=== PATIENT | female | born 1980 | race Caucasian/White ===

== ENCOUNTER 2017-05-22 05:51 | Outpatient (CLI) | payer OTHER ==
[~2017-05-22] VITALS: Ht 156.2 cm; Wt 109.8 kg
[~2017-05-22 05:51] MED LIST: ACHYD1T PO; IBP800T PO; LORA-794 PO; PREN1TAB39 PO
[2017-05-22] MEDS ORDERED: NORG1TAB7 PO (10:39)
[2017-05-22] MEDS ORDERED: LORA0.5T PO (10:39)
== END 2017-05-22 10:48 ==
LOC: PREOP 05:51
PROVIDERS: ATTEND Surgery
DX: Z01.818 Encounter for other preprocedural examination (principal); L72.9 Follicular cyst of the skin and subcutaneous tissue, unspecified

== ENCOUNTER 2017-05-24 10:01 | Day surgery (SDC) | payer OTHER ==
[~2017-05-24] VITALS: Ht 156.2 cm; Wt 109.8 kg
[~2017-05-24 10:01] MED LIST changes: +LORA0.5T PO; +NORG1TAB7 PO
--- NOTE | 2017-05-24 10:23 | Progress Note-Pre Operative ---
Pre-Operative Progress Note H&P Reviewed The H&P was reviewed, patient examined and no changes noted. Date Seen by Provider: May 22, 2017 Time Seen by Provider: 15:35 Date H&P Reviewed: May 24, 2017 Time H&P Reviewed: 10:23 Pre-Operative Diagnosis: Cyst of right leg AMRY GILL MD May 24, 2017 10:23 am
[2017-05-24] MEDS ORDERED: LACTATED RINGERS 1,000 ML IV PRN (10:49)
[2017-05-24] MEDS ORDERED: ceFAZolin 2 GM/NS 50 ML IV ONE (11:00)
[2017-05-24] MEDS ORDERED: proPOfol 200 MG/20 ML (DIPRIVAN) VIAL IV ONE (11:14)
[2017-05-24] MEDS ORDERED: LIDOCAINE PF 2% 5 ML (XYLOCAINE) VIAL ONE (11:14)
[2017-05-24] MEDS ORDERED: MIDAZOLAM 2 MG/2 ML (VERSED) VIAL ONE (11:15)
[2017-05-24] MEDS ORDERED: BUP/EPI 0.5% 1:200,000 (MARCAINE) 10ML VIAL IJ ONE ×2 (11:15→11:39)
[2017-05-24] MEDS ORDERED: HYDR-3812 PO (11:20)
--- NOTE | 2017-05-24 11:21 | Discharge Inst-Simple/Standard ---
Discharge Inst-Standard Discharge Medications New, Converted or Re-Newed RX: RX on Chart Patient Instructions/Follow Up Plan of Care/Instructions/FU: dressings off in 48 hours. Follow-up with my nurse in 2 weeks for suture Activity as Tolerated: Yes Discharge Diet: No Restrictions MARY GILL MD May 24, 2017 11:21 am
[2017-05-24] MEDS ORDERED: HYDROcodone/APAP 5 MG/325 MG (LORTAB) TAB ONE (11:25)
--- NOTE | 2017-05-24 12:05 | Operative Report ---
Operative Report Date of Procedure/Surgery May 24, 2017 Surgeon (s) MARY GILL MD [employer] Customer Service Agent (s): N/A Post-Operative Diagnosis Same Procedure Performed Excision with primary closure Description of Procedure Anesthesia Type: MAC Estimated blood loss (mL): Minimal Specimen(s) collected/removed cystic lesion Description of the Procedure Indication for the procedure: This lady presented with a long-standing, 3 cm cystic lesion over the right leg. She was offered excision to establish a definitive diagnosis. Informed consent was obtained after reviewing the procedure in detail. Description of procedure: She was placed supine on the operating table and our anesthesiologist administered sedation, monitoring her vital signs. Ancef was administered intravenously as prophylaxis against wound infection. Right leg was prepared and draped in the usual sterile manner. Local anesthesia was achieved using 0.5 percent Marcaine with epinephrine. An elliptical incision about 4 cm long by 3 cm in width was made and the lesion excised down to the subcutaneous tissue. Hemostasis was achieved using cautery and the incision closed using interrupted 40 and 2-0 nylon sutures. A nonadherent dressing was then applied. The specimen was oriented with silk sutures before being sent for histology She tolerated the procedure well and was taken to the nursing area in a stable condition. Findings of the Procedure See op report Allergies and Home Medications Allergies Coded Allergies: No Known Drug Allergies (Unverified , 09/05/11) Home Medications Hydrocodone/Acetaminophen 1 Each Tablet, 1-2 TAB PO 4-6HR PRN for PAIN, #20 Ref 0 Prescribed by: MARY GILL on 05/24/17 1120 Lorazepam 0.5 Mg Tablet, 0.5 MG PO BID PRN for ANXIETY, (Reported) Norgestimate-Ethinyl Estradiol 1 Each Tablet, 1 EACH PO DAILY, (Reported) MARY GILL MD May 24, 2017 12:05 pm
[2017-05-24 12:12] VITALS: BP 141/89
[2017-05-24] MEDS ORDERED: ONDANSETRON 4 MG/2 ML (SDV) Z0FRAN IVP PRN (12:15)
[2017-05-24] MEDS ORDERED: morphine INJ 10 MG/ML 1ML (SYR OR VIAL) IVP PRN (12:15)
[2017-05-24 12:35] VITALS: BP 148/97
[2017-05-24 13:05] VITALS: BP 128/90
[2017-05-24 13:31] VITALS: BP 128/91
== END 2017-05-24 13:31 | disposition home or self-care (01) ==
LOC: SDC 10:01
PROVIDERS: ATTEND Surgery
DX: D23.71 Other benign neoplasm of skin of right lower limb, including hip (principal); E05.00 Thyrotoxicosis with diffuse goiter without thyrotoxic crisis or storm; E66.01 Morbid (severe) obesity due to excess calories; Z68.42 Body mass index [BMI] 45.0-49.9, adult; Z87.891 Personal history of nicotine dependence; Z82.49 Family history of ischemic heart disease and other diseases of the circulatory system; Z79.899 Other long term (current) drug therapy
CPT/HCPCS: 84703; 87081

== ENCOUNTER → 2019-01-08 | Outpatient (CLI) | payer BC ==
[~2019-01-08] MED LIST changes: +ACHD5005 PO
[2019-01-08 11:57] LABS: ABSOLUTE RETIC # 65 10e9/L (24-90); BASOPHILS % (AUTO) 0 % (0-10); EOSINOPHILS # (AUTO) 0.1 10^3/uL (0.0-0.3); EOSINOPHILS % (AUTO) 0 % (0-10); HEMATOCRIT 44 % (35-52); HEMOGLOBIN 13.7 G/DL (11.5-16.0); LYMPHOCYTES # (AUTO) 6.5 X 10^3 (1.0-4.0); LYMPHOCYTES % (AUTO) 31 % (12-44); MEAN CORPUSCULAR HEMOGLOBIN 26 PG (25-34); MEAN CORPUSCULAR HGB CONC 31 G/DL (32-36); MEAN CORPUSCULAR VOLUME 84 FL (80-99); MEAN PLATELET VOLUME 11.5 FL (7.4-10.4); MONOCYTES # (AUTO) 1.1 X 10^3 (0.0-1.0); MONOCYTES % (AUTO) 5 % (0-12); NEUTROPHILS # (AUTO) 13.3 X 10^3 (1.8-7.8); NEUTROPHILS % (AUTO) 64 % (42-75); PLATELET COUNT 313 10^3/uL (130-400); RED CELL DISTRIBUTION WIDTH 14.2 % (10.0-14.5); RETICULOCYTE % 1.24 % (0.50-2.40)
[2019-01-08 12:16] LABS: ALANINE AMINOTRANSFERASE 18 U/L (0-55); ALKALINE PHOSPHATASE 64 U/L (40-136); BILIRUBIN,TOTAL 0.4 MG/DL (0.1-1.0); BUN/CREATININE RATIO 26; CALCIUM 9.2 MG/DL (8.5-10.1); CARBON DIOXIDE 25 MMOL/L (21-32); CHLORIDE 108 MMOL/L (98-107); CREATININE SERUM 0.73 MG/DL (0.60-1.30); GFR ESTIMATED > 60; GLUCOSE 74 MG/DL (70-105); POTASSIUM 4.1 MMOL/L (3.6-5.0); SODIUM 141 MMOL/L (135-145); TOTAL PROTEIN 6.8 GM/DL (6.4-8.2)
[2019-01-08 13:04] LABS: BAND NEUTROPHILS 0 %; BASOPHILS % (MANUAL) 0 %; EOSINOPHILS % (MANUAL) 0 %; LYMPHOCYTES % (MANUAL) 21 %; MONOCYTES % (MANUAL) 4 %; NEUTROPHILS % (MANUAL) 75 %; RBC MORPH NORMAL
== END ==
LOC: LAB 11:40
PROVIDERS: ATTEND Family Medicine
DX: D72.829 Elevated white blood cell count, unspecified (principal); D58.2 Other hemoglobinopathies
CPT/HCPCS: 36415; 80053; 85007; 85027; 85045

== ENCOUNTER 2019-03-20 10:56 | Outpatient (RCR) | payer BC ==
[~2019-03-20 10:56] MED LIST changes: -NORG1TAB7 PO; +NORG1TAB87 PO
[2019-03-20 11:16] LABS: BASOPHILS % (AUTO) 1 % (0-10); EOSINOPHILS % (AUTO) 0 % (0-10); HEMATOCRIT 45 % (35-52); HEMOGLOBIN 14.2 G/DL (11.5-16.0); LYMPHOCYTES # (AUTO) 2.4 X 10^3 (1.0-4.0); LYMPHOCYTES % (AUTO) 27 % (12-44); MEAN CORPUSCULAR HEMOGLOBIN 26 PG (25-34); MEAN CORPUSCULAR HGB CONC 31 G/DL (32-36); MEAN CORPUSCULAR VOLUME 83 FL (80-99); MONOCYTES # (AUTO) 0.4 X 10^3 (0.0-1.0); MONOCYTES % (AUTO) 5 % (0-12); NEUTROPHILS % (AUTO) 68 % (42-75); PLATELET COUNT 332 10^3/uL (130-400); RED CELL DISTRIBUTION WIDTH 13.8 % (10.0-14.5); WHITE BLOOD COUNT 8.8 10^3/uL (4.3-11.0)
== END 2019-05-20 | disposition home or self-care (01) ==
LOC: ONC 10:56
PROVIDERS: ATTEND Internal Medicine Hematology & Oncology
DX: D72.829 Elevated white blood cell count, unspecified (principal); D58.2 Other hemoglobinopathies
CPT/HCPCS: 36415; 85025; 99213; 99214

== ENCOUNTER → 2019-12-24 | Outpatient (CLI) | payer BC, OTHER ==
--- NOTE | 2019-12-25 10:14 | Diagnostic Imaging Report ---
EXAM: Digital mammogram bilateral screening COMPARISON: This is the patient's baseline study. There are no current complaints. FINDINGS: There are scattered fibroglandular densities in both breasts which could obscure a lesion. On the tomographic images, there is the suggestion of an area of architectural distortion in the midportion of the right breast on the craniocaudad view (slice 8/81). There is no corresponding abnormality seen on the MLO view and this finding may merely be secondary to superimposition. Even so, I would recommend that a compression view of this area be obtained in the CC projection as well as a true lateral view. Furthermore, tomographic images of the lower half of the right breast in the MLO projection should also be performed. If this density persists, ultrasound may be necessary, as well. The left breast is unremarkable. IMPRESSION: 1. Additional mammographic views of the right breast were recommended for further study. Ultrasound may also be necessary. ACR category 0. ACR BI-RADS Category 0: Incomplete. (Needs additional imaging evaluation). Result letter will be mailed to the patient. Note: At least 10% of breast cancer is not imaged by mammography. Dictated by: Dictated on workstation # [id number]
== END ==
LOC: RAD 11:05
PROVIDERS: ATTEND Obstetrics & Gynecology
DX: Z12.31 Encounter for screening mammogram for malignant neoplasm of breast (principal)
CPT/HCPCS: 77063; 77067

== ENCOUNTER → 2020-01-04 | Outpatient (CLI) | payer BC ==
--- NOTE | 2020-01-04 13:16 | Diagnostic Imaging Report ---
INDICATION: Architectural distortion right breast. Patient presents for additional views. COMPARISON: 12/24/2019. TECHNIQUE: Unilateral right 2D and 3D diagnostic mammography was performed including multiple spot compression CC, MLO, and ML views as well as a conventional 90 degree lateral view. FINDINGS: There is a persistent area of architectural distortion in the lower slightly inner right breast approximately 7 to 8 cm from the nipple. No suspicious calcifications are seen. IMPRESSION: Persistent architectural distortion in the right breast, as described. Further evaluation with ultrasound is recommended and will be performed today. ACR BI-RADS Category 0: Incomplete. (Needs additional imaging evaluation). Result letter will be mailed to the patient. Note: At least 10% of breast cancer is not imaged by mammography. Dictated by: Dictated on workstation # [id number]
--- NOTE | 2020-01-04 14:13 | Diagnostic Imaging Report ---
INDICATION: Right breast architectural distortion. Correlation is made with diagnostic mammogram earlier the same day as well as screening mammogram from 12/24/2019. Sonographic interrogation in the lower right breast was performed. No sonographic abnormality is seen. No solid or cystic mass is detected. IMPRESSION: BI-RADS 0 No sonographic abnormality is identified. Due to persistent persistent architectural distortion on additional views, MRI of the breasts would be recommended for further evaluation. ACR BI-RADS Category 0: Incomplete. (Needs additional imaging evaluation). Dictated by: Dictated on workstation # [id number]
== END ==
LOC: RAD 12:43
PROVIDERS: ATTEND Obstetrics & Gynecology
DX: N64.89 Other specified disorders of breast (principal); R92.8 Other abnormal and inconclusive findings on diagnostic imaging of breast
CPT/HCPCS: 76642; 77065; G0279

== ENCOUNTER → 2020-01-21 | Outpatient (CLI) | payer BC, OTHER ==
[~2020-01-21] MED LIST changes: +GADOBUTROL 15 MMOL/15 ML (GADAVIST) VIAL IV ONE
--- NOTE | 2020-01-21 13:01 | Diagnostic Imaging Report ---
TECHNIQUE: Utilizing 1.5 Irina magnet, patient was placed in a prone position with 8-channel dual breast coil utilized. Axial STIR precontrasted image and axial T1 fat-sat postcontrast high-resolution images obtained. Sagittal T2-weighted images precontrast, bilaterally, as well. Sagittal vibrant temporal images were obtained pre and post contrast with bolus technique utilized of gadolinium. Images are postcontrast immediately and subsequently for 7 minutes. Pre and post contrasted images are then evaluated with [employer] for evaluation of possible angiogenesis. COMPARISON: 01/04/2020 and 12/24/2019 INDICATION: Abnormal mammography, architectural distortion within the right breast. FINDINGS: The bilateral breasts demonstrate predominantly fatty tissue. No significant axillary or intramammary adenopathy. Scattered foci of enhancement are identified within the bilateral breasts, predominantly demonstrating progressive kinetics. A tiny region of non-mass enhancement is identified within the right at near 5 o'clock middle depth. This region appears T2 hyperintense. This demonstrates minimal progressive vascular kinetics. This is felt to correspond to the architectural distortion noted on prior mammography. This measures near 7 mm. No additional suspicious mass or non-mass enhancement within either breast. IMPRESSION: Minimal non-mass enhancement within the region of architectural distortion within the middle depth of the right breast near 5 o'clock is suspicious for malignancy. Given the presence of a persistent architectural distortion which is visualized on mammography which is felt to relate to this non-mass enhancement, tomographic guided biopsy is recommended. No evidence of malignancy within the left breast. BI-RADS Category 4: Suspicious of malignancy, tomographic guided biopsy is recommended. ACR BI-RADS Category 4: Suspicious abnormality. Result letter will be mailed to the patient. Note: At least 10% of breast cancer is not imaged by mammography. Dictated by: Dictated on workstation # [id number]
== END ==
LOC: RAD 09:45
PROVIDERS: ATTEND Obstetrics & Gynecology
DX: N64.89 Other specified disorders of breast (principal); R92.8 Other abnormal and inconclusive findings on diagnostic imaging of breast
CPT/HCPCS: 77049

== ENCOUNTER → 2020-02-04 | Outpatient (CLI) | payer OTHER ==
[~2020-02-04] MED LIST changes: -GADOBUTROL 15 MMOL/15 ML (GADAVIST) VIAL IV ONE; +LIDOCAINE 1% INJ 20 ML 20 ML VIAL INJ ONE; +LIDOCAINE 1% INJ 20 ML 20 ML VIAL ONE
[2020-02-04 10:07] VITALS: BP 134/70
--- NOTE | 2020-02-04 12:25 | Diagnostic Imaging Report ---
INDICATION: Architectural distortion, right breast. PROCEDURE: The patient presents for stereotactic biopsy using tomosynthesis. DESCRIPTION OF PROCEDURE: The patient was brought to the stereotactic suite and placed in the chair in the sitting upright position. The right breast was positioned mediolateral. The area of architectural distortion in the inferior aspect of the right breast was targeted using a tomosynthesis. The breast was then prepped and draped in the usual sterile fashion. A small amount of 1% lidocaine was utilized for local anesthesia. An 8-gauge needle was advanced and placed with its tip per coordinates. A total of 4 core biopsies were obtained utilizing a vacuum-assisted device. A marker clip was then deployed. Needle was removed and hemostasis was obtained using manual compression. Follow-up 2D CC and ML mammogram was performed to evaluate clip placement. Images demonstrate the clip in the inferior central right breast at the area of architectural distortion. The patient tolerated the procedure well. All images were viewed on dedicated workstation. IMPRESSION: Successful tomosynthesis-assisted biopsy of the area of architectural distortion in the inferior right breast, utilizing an 8-gauge vacuum-assisted device. Pathology results are currently pending. Dictated by: Dictated on workstation # [id number]
== END ==
LOC: RAD 10:04
PROVIDERS: ATTEND Surgery
DX: N63.10 Unspecified lump in the right breast, unspecified quadrant (principal)
CPT/HCPCS: 19081; A4648

== ENCOUNTER → 2021-02-02 | Outpatient (CLI) | payer OTHER ==
[~2021-02-02] MED LIST changes: -LIDOCAINE 1% INJ 20 ML 20 ML VIAL INJ ONE; -LIDOCAINE 1% INJ 20 ML 20 ML VIAL ONE
--- NOTE | 2021-02-02 10:06 | Diagnostic Imaging Report ---
INDICATION: Left nipple discharge. COMPARISON: 12/24/2019. TECHNIQUE: 2D and 3D bilateral diagnostic mammography was performed with CAD. FINDINGS: Scattered fibroglandular densities are identified bilaterally. There are biopsy changes in the lower slightly inner right breast with a marker clip. No spiculated mass or malignant-appearing microcalcifications are seen. Specifically, no abnormality in the region of the left nipple or retroareolar region is identified. The axillae are unremarkable. IMPRESSION: No mammographic features suspicious for malignancy are identified. Even so, directed sonographic interrogation of the retroareolar left breast is recommended and will be performed today. ACR BI-RADS Category 0: Incomplete. (Needs additional imaging evaluation). Result letter will be mailed to the patient. Note: At least 10% of breast cancer is not imaged by mammography. Dictated by: Dictated on workstation # [id number]
--- NOTE | 2021-02-02 10:07 | Diagnostic Imaging Report ---
INDICATION: Left nipple discharge. TECHNIQUE: Sonographic interrogation of the retroareolar left breast was performed. FINDINGS: There is a solid-appearing intraductal nodule measuring approximately 5 mm x 2 mm x 11 mm suggestive of an intraductal papilloma. No other masses are identified. There is mild ductal dilatation. IMPRESSION: Findings are suggestive of an intraductal papilloma. Surgical consultation could be obtained for resection. ACR BI-RADS Category 2: Benign findings. Dictated by: Dictated on workstation # [id number]
== END ==
LOC: RAD 09:15
PROVIDERS: ATTEND Obstetrics & Gynecology
DX: N64.52 Nipple discharge (principal); R85.619 Unspecified abnormal cytological findings in specimens from anus
CPT/HCPCS: 76642; 77066; G0279; 77062

== ENCOUNTER 2021-02-23 05:45 | Outpatient (CLI) | payer OTHER ==
[~2021-02-23] VITALS: Ht 157.5 cm; Wt 102.3 kg
[2021-02-23] MEDS ORDERED: LORA-404 PO (09:06)
[2021-02-23] MEDS ORDERED: LEVO150C4 PO (09:06)
[2021-02-23] MEDS ORDERED: PROP10TA8 PO (09:07)
== END 2021-02-23 10:08 ==
LOC: PREOP 05:45
PROVIDERS: ATTEND Surgery
DX: Z01.818 Encounter for other preprocedural examination (principal)

== ENCOUNTER 2021-03-02 08:28 | Day surgery (SDC) | payer OTHER ==
--- NOTE | 2021-02-23 06:00 | HISTORY AND PHYSICAL ---
DATE OF SERVICE: DATE OF ADMISSION: 03/02/2021. ATTENDING PRIMARY CARE PHYSICIAN: Alessia Jj MD. HISTORY OF PRESENT ILLNESS: The patient is a 40-year-old female known to us. She was initially referred over to us for a right breast lesion in 11/2019. She underwent a screening mammogram on 12/24/2019, which was a BI-RADS 0 and incomplete. She has a large fibrocystic breast for many years. She then underwent a 3D mammography on 01/04/2020, which again was a BI-RADS 0 and incomplete. She then underwent an ultrasound on 01/04/2020, which was again a BI-RADS 0 and incomplete. An MRI of bilateral breasts was then performed on 01/21/2020, which showed architectural distortion within the middle depth of the right breast at the 5 o'clock position suspicious for malignancy and considered a BI-RADS category 4. She then underwent an MRI-guided biopsy of the lesion, which did come back as a benign adenosis with a small intraductal papilloma and radial sclerosing lesion, negative for atypia or malignancy. She was referred today for left breast nipple discharge. She reports that the drainage has been a clear brown to yellow color for the past two months. She also states some mild breast tenderness. A 3D mammogram was performed, which did not show any lesions and she then underwent an ultrasound of the left breast, which did show an 11 x 5 x 2 mm lesion consistent with an intraductal papilloma. There was also mild ductal dilatation. Upon examination in the office, the responsible quadrant was in the upper outer region of the left nipple areolar complex in between approximately 11 o'clock and 2 o'clock positions. She does not report any palpable breast masses as well as no skin dimpling. She started menses at around age 13 and is currently having menstrual cycles. She has taken oral contraceptive pills for a total of 22 years. She has had two pregnancies and two live childbirths with the first at age 22 and did not breastfeed either child. She has only had one previous breast biopsy on the right breast. She does not report any family history of breast cancer; however, her mother was diagnosed with ovarian cancer and a maternal aunt with rectal cancer diagnosed in her 50s. 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 PAST SURGICAL HISTORY: Total thyroidectomy and central node dissection in 08/2020, tonsillectomy, and right knee arthroscopy in 1996. ALLERGIES: No known drug allergies. MEDICATIONS: Levothyroxine 150 mcg daily, propranolol t.i.d., Ortho Tri-Cyclen daily, and Ativan 25 mg t.i.d. SOCIAL HISTORY: Previous smoker, quit 12 years ago, six pack years. Negative alcohol. FAMILY HISTORY: Mother, stroke, age 55, hypertension, ovarian cancer. Maternal aunt rectal cancer diagnosed in her 50s. REVIEW OF SYSTEMS: A well-nourished female, in no acute distress. She is not experiencing any shortness of breath or difficulty breathing. No chest pain, palpitations, diaphoresis. No nausea, vomiting, no diarrhea or constipation. No fever, chills, no recent inadvertent weight loss. All other review of systems negative. PHYSICAL EXAMINATION: VITAL SIGNS: Stable, current weight 225 pounds at 5 feet 2 inches. CHEST: Clear. Good breath sounds bilaterally. HEART: Regular, no murmurs. EXTREMITIES: No lower extremity edema, negative Homans sign. HEENT: No scleral icterus. NECK: No cervical lymphadenopathy. ABDOMEN: Soft, nontender, and nondistended. BREASTS: Bilateral fibrocystic breasts. There is an expression of clear brown fluid from the left nipple areolar complex in between 11 and 12 o'clock position. No blood identified. No underlying palpable masses. No skin redness or erythema. ASSESSMENT AND PLAN: A 40-year-old female with symptomatic intraductal papilloma in between the 11 o'clock to 2 o'clock position of the left breast. The natural history of this disease process was explained to the patient and the risks and benefits of excision and we will proceed with a left breast segmental ductal resection. Job ID: [id number] DocumentID: [id number] Dictated Date: 02/07/2021 17:16:18 Steamfitter Date: 02/07/2021 17:35:17 Dictated By: RICHARD DUDLEY MD
[2021-03-02] VITALS (9 sets, daily range): BP systolic 121–176; BP diastolic 72–99
[~2021-03-02] VITALS: Ht 157.5 cm; Wt 102.3 kg
[~2021-03-02 08:28] MED LIST changes: +LEVO150C4 PO; +LORA-404 PO; +PROP10TA8 PO
--- OUTSIDE RECORDS SUMMARY | 2021-03-02 08:32 | XMS REPORT | Clinical Summary ---
Author Author [facility] Address Unknown Phone Unavailable Care Team Providers Care Station Installer Name Role Phone Alessia Jj MD PCP Source Comments Some departments are not documenting in the electronic medical record. If you d o not see the information that you expected, contact Release of Information in [facility] Information Management department at [phone] for further assistan ce in locating additional records.[facility] Allergies No Known Active Allergies Medications End Date Status Medication Sig Dispensed Refills Start Date Active LORazepam (ATIVAN) 0.5 mg Take 1 tablet 0 tablet by mouth twice daily as needed. Active norgestimate-ethinyl Take 1 tablet 0 estradiol (ESTARYLLA PO) by mouth daily. Active Problems Problem Noted Date Osteoarthritis 11/15/2019 Vitamin D deficiency 11/15/2019 CRP elevated 11/15/2019 Sedimentation rate elevation 11/15/2019 Anxiety 09/29/2019 Graves' disease 09/29/2019 Snoring 09/29/2019 Uveitis of left eye 09/29/2019 Obesity 09/29/2019 Surgical History Surgery Date Site/Laterality Comments ACL RECONSTRUCTION TONSILLECTOMY KNEE SURGERY Left cartilage repaired CYST REMOVAL Right right leg Medical History Medical History Date Comments Actinic keratosis Acute laryngopharyngitis Acute upper respiratory infection Hypertension Anxiety disorder Graves disease Sinusitis, acute Other elevated white blood cell count Palpitations Snoring Iridocyclitis, acute or subacute Family History Medical History Relation Name Comments Heart Disease Father Diabetes Mother Hypertension Mother Stroke Mother Hypertension Sister Relation Name Status Comments Father Mother Sister Social History Date Tobacco Use Types Packs/Day Years Used Never Smoker Smokeless Tobacco: Never Used Comments Alcohol Use Standard Drinks/Week Never 0 (1 standard drink = 0.6 o z pure alcohol) Alcohol Habits Answer Date Recorded How often do you have a drink containing alcohol? Never 05/20/2019 How many drinks containing alcohol do you have on No t asked a typical day when you are drinking? How often do you have six or more drinks on one Not asked occasion? Comment: Not asked Sex Assigned at Date Recorded Female 10/06/2019 1:52 PM CDT Last Filed Vital Signs Reading Time Taken Comments Vital Sign - - Blood Pressure - - Pulse - - Temperature - - Respiratory Rate - - Oxygen Saturation - - Inhaled Oxygen Concentration 109.1 kg (240 lb 9.6 oz) 09/29/2019 12:36 PM CDT Weight 157.5 cm (5' 2") 09/29/2019 12:36 PM CDT Height 44.01 09/29/2019 12:36 PM CDT Body Mass Index Plan of Treatment Health Maintenance Due Date Last Done Comments HIV SCREENING 02/11/1996 DTAP/TDAP VACCINES (1 - 1999 Tdap) HEPATITIS C SCREENING 1999 PHYSICAL (COMPREHENSIVE) 1999 EXAM CERVICAL CANCER SCREENING 2002 BREAST CANCER SCREENING 2021 INFLUENZA VACCINE 03/31/2021 Results Not on filefrom Last 3 Months Insurance Type Payer Benefit Subscriber ID Effective Phone Address Plan / Dates Group PPO BCBS [employer] [id number] [id number] OUT OF resent STATE Advance Directives Patient Lean Engineer Explanation Type Date Recorded Advance Directive/DPOA
--- OUTSIDE RECORDS SUMMARY | 2021-03-02 08:32 | XMS REPORT | CCD ---
Author Author Alexandria Jj Organization Alessia Jj MD, [facility] Address [address] [place] [address] Phone Care Team Providers Care Trust Evaluation Supervisor Name Role Phone PP Unavailable CCM Unavailable Summary Purpose Interface Exchange Insurance Providers Payer name Policy type / Coverage type Covered constitution party ID Effective Begin Date Effective End Date Antoniapareshfrancine From [employer] Other Federal Program [id number] 2019 Unknown Family history Sister Diagnosis Age At Onset Hypertension Unknown Mother Diagnosis Age At Onset Hypertension Unknown Diabetes mellitus Type 2 Unknown Stroke Unknown Father Diagnosis Age At Onset Heart disease Unknown Social History Social History Element Codes Description Effective Dates Employment Unknown Currently employed [employer] 04/25/2015 Number of children Unknown 2 04/09/2012 Living arrangements Unknown House 04/09/2012 Number of children in household Unknown 2 04/09/[address]: 888221478 Nonsmoker 04/09/[address]: 153213309 Never drinks alcohol 2011 Allergies, Adverse Reactions, Alerts Substance Reaction Codes Entered Date Inactivated Date Status * NO KNOWN ENVIRONMENTAL ALLERGIES Unknown 03/03/2014 N o Inactive Date Active * NO KNOWN FOOD ALLERGIES Unknown 03/03/2014 No Inactiv e Date Active * NO KNOWN DRUG ALLERGIES Unknown 04/09/2012 No Inactiv e Date Active Problems Condition Codes Effective Dates Condition Status Graves disease ICD-10: E05.00 ICD-9: 242.00 01/11/2020 Active Thyroid nodule ICD-10: E04.1 ICD-9: 241.0 01/11/2020 Active Other elevated white blood cell count ICD-10: D72.828 ICD-9: 288.69 01/12/2019 Active 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 ICD-9: 364.3 01/12/2019 Active Pain in left knee ICD-10: M25.562 ICD-9: 719.46 08/01/2018 Active Other obesity due to excess calories ICD-10: E66.09 ICD-9: 278.00 05/16/2017 Active Other skin changes ICD-10: R23.8 ICD-9: 782.9 05/16/2017 Active Essential (primary) hypertension ICD-10: I10 ICD-9: 401.1 01/24/2017 Active Palpitations ICD-10: R00.2 ICD-9: 785.1 01/24/2017 Active Unspecified acute and subacute iridocyclitis ICD-10: H 20.00 ICD-9: 364.00 01/24/2017 Active Acute laryngopharyngitis ICD-10: J06.0 ICD-9: 465.0 02/28/2016 Active Other acute sinusitis ICD-10: J01.80 ICD-9: 461.8 02/28/2016 Active Actinic keratosis ICD-10: L57.0 ICD-9: 702.0 05/24/2015 Active Acute upper respiratory infection, unspecified ICD-10: J06.9 ICD-9: 465.9 05/09/2015 Active Hypertension Unknown 04/25/2015 Active Abnormal results of thyroid function studies ICD-10: R 94.6 ICD-9: 794.5 04/24/2015 Active Body mass index (BMI) 40.0-44.9, adult ICD-10: Z68.41 ICD-9: V85.41 04/24/2015 Active Essential (primary) hypertension ICD-10: I10 ICD-9: 401.9 04/24/2015 Active Generalized anxiety disorder ICD-10: F41.1 ICD-9: 300.00 04/24/2015 Active Rash and other nonspecific skin eruption ICD-10: R21 ICD-9: 782.1 04/24/2015 Active VACCIN FOR INFLUENZA ICD-10: Z23 ICD-9: V04.81 04/24/2015 Active ANXIETY STATE ICD-9: 300.00 03/03/2014 Active Graves disease ICD-9: 242.00 03/03/2014 Active Obesity ICD-9: 278.00 03/03/2014 Active Snoring disorder ICD-9: 786.09 05/26/2013 Active graves disease Unknown 04/09/2012 Active Fatigue ICD-9: 780.79 04/09/2012 Active Medications Medication Codes Instructions Start Date Stop Date Status Fill Instructions propranolol 10 mg tablet RxNorm: 865899 Take 1 Tablet(s) Oral t hree times a day 2021 03/11/2021 Active propranolol 10 mg tablet RxNorm: 634376 1 Tablet(s) Oral three times a day 01/11/2020 05/10/2020 Inactive Ativan 0.5 mg tablet RxNorm: 958578 Tablet(s) PO as nee ded TAKE 1 TABLET BY MOUTH TWICE DAILY 01/12/2019 03/10/2019 Inactive naproxen 500 mg tablet RxNorm: 154992 1 Tablet(s) PO BID 08/01/2018 0 08/05/2018 Inactive Contrave 8 mg-90 mg tablet,extended release RxNorm: 2454331 Tablet(s) TAKE 2 TABLETS BY MOUTH TWICE DAILY 05/16/2017 12/29/2018 Inactive Ativan 0.5 mg tablet RxNorm: 326197 Tablet(s) PO as nee ded TAKE 1 TABLET BY MOUTH TWICE DAILY 03/22/2017 05/20/2017 Inactive lisinopril 20 mg tablet RxNorm: 260216 1 Tablet(s) PO daily 017 02/22/2017 Inactive amoxicillin 500 mg capsule RxNorm: 928451 1 Capsule(s) PO TID 02/2803/09/2016 Inactive Kenalog 40 mg/mL suspension for injection RxNorm: 9243582 Millil iter(s) Inj 02/29/2016 02/29/2016 Inactive ceftriaxone 500 mg solution for injection RxNorm: 2015042 Inj 02/29/2016 02/29/2016 Inactive Ativan 0.5 mg tablet RxNorm: 407120 Tablet(s) PO TAKE 1 TABLET BY MOUTH TWICE DAILY 01/23/2016 03/21/2017 Inactive (Appended: Contr olled substance eRx refill - RxReferenceNumber: [id number]|1|0|1) Contrave 8 mg-90 mg tablet,extended release RxNorm: 0883588 TAKE 2 TABLETS BY MOUTH TWICE DAILY 01/02/2016 02/03/2017 Inactive Contrave 8 mg-90 mg tablet,extended release RxNorm: 9287875 TAKE 2 TABLETS BY MOUTH TWICE DAILY 08/08/2015 10/06/2015 Inactive ceftriaxone 500 mg solution for injection RxNorm: 8195159 Inj 05/10/2015 05/10/2015 Inactive Kenalog 40 mg/mL suspension for injection RxNorm: 7136395 Millil iter(s) Inj 05/10/2015 05/10/2015 Inactive Contrave 8 mg-90 mg tablet,extended release RxNorm: 5721121 1 Ta blet(s) PO UD 04/28/2015 08/07/2015 Inactive 1 po q amx 1wk then 1 po BID x 1 wek then 1 po q am and 2 po q pm x 1 week then 2 po bid therefafter betamethasone valerate 0.1 % topical cream RxNorm: 994920 1 Amara lication TOP BID 04/27/2015 06/25/2015 Inactive betamethasone valerate 0.1 % topical cream RxNorm: 250055 1 Amara lication TOP BID 04/27/2015 04/26/2015 Inactive Ativan 0.5 mg tablet RxNorm: 544193 Tablet(s) PO TAKE 1 TABLET BY MOUTH TWICE DAILY 12/07/2014 01/22/2016 Inactive (Appended: Contr olled substance eRx refill - RxReferenceNumber: [id number]|1|0|1) escitalopram 10 mg tablet RxNorm: 199599 1 TABLET(S) PO QPM 015 04/27/2015 Inactive [SAVINGS FOR UNINSURED PATIE NTS -- BIN:[id number], PCN: [id number], Group: [id number], ID# [id number], Process claim through [employer], for questions: . THIS IS NOT INSURANCE.] escitalopram 10 mg tablet RxNorm: 220369 1 Tablet(s) PO QPM 014 09/28/2014 Inactive [SAVINGS FOR UNINSURED PATIE NTS -- BIN:[id number], PCN: ASPROD1, Group: [id number], ID# [id number], Process claim through [employer]!, for questions: . THIS IS NOT INSURANCE.] Ativan 0.5 mg tablet RxNorm: 397057 Tablet(s) PO TAKE 1 TABLET BY MOUTH TWICE DAILY 03/02/2014 12/06/2014 Inactive (Appended: Contr olled substance eRx refill - RxReferenceNumber: [id number]|1|0|1) Ativan 0.5 mg tablet RxNorm: 312199 1 Tablet(s) PO BID PRN TAKE 1 TABLET BY MOUTH TWICE DAILY NEEDED 08/13/2013 10/11/2013 Inactive ([place] ended: Controlled substance eRx refill - RxReferenceNumber: [id number]|1|0|1) Ativan 0.5 mg tablet RxNorm: 826071 Tablet(s) PO TAKE 1 TABLET BY MOUTH TWICE DAILY 08/13/2013 03/01/2014 Inactive (Appended: Cont rolled substance eRx refill - RxReferenceNumber: [id number]|1|0|1) Ativan 0.5 mg tablet RxNorm: 024535 1 Tablet(s) PO BID TAKE 1 TABLET BY MOUTH TWICE DAILY NEEDED 02/16/2013 08/13/2013 Inactive (Appended: Controlled substance eRx refill - RxReferenceNumber: [id number]|1|0|1) Ativan 0.5 mg tablet RxNorm: 373912 Tablet(s) PO TAKE 1 TABLET BY MOUTH TWICE DAILY NEEDED 01/15/2013 02/15/2013 Inactive (Appended: Cont rolled substance eRx refill - RxReferenceNumber: [id number]|1|0|1) Ativan 0.5 mg tablet RxNorm: 562481 Tablet(s) PO TAKE 1 TABLET BY MOUTH TWICE DAILY NEEDED 10/30/2012 08/12/2013 Inactive (Appended: Cont rolled substance eRx refill - RxReferenceNumber: [id number]|1|0|1) Ativan 0.5 mg tablet RxNorm: 479409 Tablet(s) PO TAKE 1 TABLET BY MOUTH TWICE DAILY NEEDED 10/30/2012 01/15/2013 Inactive (Appended: Contr olled substance eRx refill - RxReferenceNumber: [id number]|1|0|1) Ativan 0.5 mg tablet RxNorm: 706239 Tablet(s) PO TAKE 1 TABLET BY MOUTH TWICE DAILY NEEDED 09/15/2012 10/29/2012 Inactive (Appended: Cont rolled substance eRx refill - RxReferenceNumber: [id number]|1|0|1) Ativan 0.5 mg tablet RxNorm: 874046 1 Tablet(s) PO BID PRN 09/16/19 13 10/30/2012 Inactive Ativan 0.5 mg tablet RxNorm: 514694 1 Tablet(s) PO BID PRN 07/22/19 13 08/20/2012 Inactive Ativan 0.5 mg tablet RxNorm: 658026 1 Tablet(s) PO BID PRN 04/09/20 12 07/21/2012 Inactive Ortho Tri-Cyclen (28) Oral RxNorm: Oral 04/09/2012 Ac tive Contrave 8 mg-90 mg tablet,extended release RxNorm: 0688456 1 Ta blet(s) PO UD 04/28/2015 04/27/2015 Inactive 1 po q amx 1wk then 1 po BID x 1 wek then 1 po q am and 2 po q pm x 1 week then 2 po bid therefafter Ativan 0.5 mg tablet RxNorm: 446627 1 Tablet(s) PO PRN 04/09/201203/2012 Inactive Medication Administered Medication Codes Instructions Start Date Status Kenalog 40 mg/mL suspension for injection RxNorm: 7790307 Millilite r 02/29/2016 No longer Active ceftriaxone 500 mg solution for injection RxNorm: 5481204 02/29/2016 No longer Active Kenalog 40 mg/mL suspension for injection RxNorm: 7426174 Millilite r 05/10/2015 No longer Active ceftriaxone 500 mg solution for injection RxNorm: 6094121 05/10/2015 No longer Active Immunizations Vaccine Codes Date Status Influenza CVX: 135 04/25/2015 Results Observation Observation Code Item Item Code Result Date S ervice Location Free T4 Bpi944 FREE T4 0.91 ng/dL 01/24/2017 Unknown Comp Metabolic Ohf198 NA 141 mEq/L 01/22/2017 Unkn own Comp Metabolic Rts200 K 4.4 mEq/L 01/22/2017 Unkn own Comp Metabolic Osu083 CL 103 mEq/L 01/22/2017 Unkn own Comp Metabolic Kll122 CO2 26.0 mEq/L 01/22/2017 Unk nown Comp Metabolic Wav599 ANION GAP 16 01/22/2017 Unkn own Comp Metabolic Xbz943 GLUCOSE 108 mg/dL 01/22/2017 Unkn own Comp Metabolic Zep509 Creat 0.7 mg/dL 01/22/2017 Unkn own Comp Metabolic Waq005 eGFR 102 ml/min/1.73m2 017 Unknown Comp Metabolic Dxh237 BUN 12 mg/dL 01/22/2017 Unkn own Comp Metabolic Bzz994 B/C Ratio 17.4 Ratio 01/22/2017 Unk nown Comp Metabolic Gct086 CALCIUM 9.4 mg/dL 01/22/2017 Unkn own Comp Metabolic Epd862 ALK PHOS 65 U/L 01/22/2017 Unkn own Comp Metabolic Bbl012 AST(SGOT) 11 U/L 01/22/2017 Unkn own Comp Metabolic Htd050 ALT(SGPT) 15 U/L 01/22/2017 Unkn own Comp Metabolic Hco451 BILI T 0.4 mg/dL 01/22/2017 Unkn own Comp Metabolic Wkh699 ALBUMIN 4.3 g/dL 01/22/2017 Unkn own Comp Metabolic Iao589 TPRO 6.9 g/dL 01/22/2017 Unkn own Comp Metabolic Qde299 GLOB 2.7 g/dL 01/22/2017 Unkn own Comp Metabolic Hva873 A/G Ratio 1.6 Ratio 01/22/2017 Unkn own Comp Metabolic Fyf718 Osmo 282 mOsmo 01/22/2017 Unkn own Lipid Ord30 CHOL 204 mg/dL 01/22/2017 Unknown Lipid Ord30 HDL 67.0 mg/dl 01/22/2017 Unknown Lipid Ord30 TRIG 74 mg/dL 01/22/2017 Unknown Lipid Ord30 LDL 122 mg/dL 01/22/2017 Unknown Lipid Ord30 C/HDL 3.0 Ratio 01/22/2017 Unknown Tsh Ord6 hTSH II 1.80 uIU/mL 01/22/2017 Unknown Cbc With Differential Ord2 WBC 7.7 K/uL 04/27/20 15 Unknown Cbc With Differential Ord2 LYM 2.1 K/uL 04/27/20 15 Unknown Cbc With Differential Ord2 LYM% 26.9 % 04/27/20 15 Unknown Cbc With Differential Ord2 NEUT/GRAN 5.2 K/uL 04/27/20 15 Unknown Cbc With Differential Ord2 NEUT/GRAN % 67.7 % 2014 Unknown Cbc With Differential Ord2 MID 0.4 K/uL 04/27/20 15 Unknown Cbc With Differential Ord2 MID% 5.4 % 04/27/20 15 Unknown Cbc With Differential Ord2 RBC 4.88 M/uL 04/27/20 15 Unknown Cbc With Differential Ord2 HGB 12.9 g/dL 04/27/20 15 Unknown Cbc With Differential Ord2 HCT 41.2 % 04/27/20 15 Unknown Cbc With Differential Ord2 MCV 84 fL 04/27/20 15 Unknown Cbc With Differential Ord2 MCH 26 pg 04/27/20 15 Unknown Cbc With Differential Ord2 MCHC 31 g/dL 04/27/20 15 Unknown Cbc With Differential Ord2 PLT 256 K/uL 04/27/20 15 Unknown Cbc With Differential Ord2 RDW 14.7 % 04/27/20 15 Unknown Free T4 Xzm598 FREE T4 0.82 ng/dL 04/27/2015 Unknown %Hba1C Ayl552 % HbA1c 10258-3 5.7 % 04/27/2015 Unknown %Hba1C Kvl374 Gluc Ave 117 mg/dL 04/27/2015 Unknown Tsh Ord6 hTSH II 3.42 uIU/mL 04/27/2015 Unknown Comp Metabolic Wpl034 NA 135 mEq/L 04/27/2015 Unkn own Comp Metabolic Kyu619 K 4.0 mEq/L 04/27/2015 Unkn own Comp Metabolic Ihx384 CL 103 mEq/L 04/27/2015 Unkn own Comp Metabolic Uvm555 CO2 24.0 mEq/L 04/27/2015 Unk nown Comp Metabolic Gdo924 ANION GAP 12 04/27/2015 Unkn own Comp Metabolic Pbv212 GLUCOSE 91 mg/dL 04/27/2015 Unkn own Comp Metabolic Iao267 Creat 0.6 mg/dL 04/27/2015 Unkn own Comp Metabolic Vtr383 eGFR 119 ml/min/1.73m2 015 Unknown Comp Metabolic Kgw946 BUN 14 mg/dL 04/27/2015 Unkn own Comp Metabolic Add228 B/C Ratio 23.0 Ratio 04/27/2015 Unk nown Comp Metabolic Qbg771 CALCIUM 8.9 mg/dL 04/27/2015 Unkn own Comp Metabolic Dfr955 ALK PHOS 80 U/L 04/27/2015 Unkn own Comp Metabolic Cvq431 AST(SGOT) 12 U/L 04/27/2015 Unkn own Comp Metabolic Fxd673 ALT(SGPT) 14 U/L 04/27/2015 Unkn own Comp Metabolic Rtc344 BILI T 0.5 mg/dL 04/27/2015 Unkn own Comp Metabolic Hvl574 ALBUMIN 4.0 g/dL 04/27/2015 Unkn own Comp Metabolic Xoc102 TPRO 6.5 g/dL 04/27/2015 Unkn own Comp Metabolic Hro165 GLOB 2.5 g/dL 04/27/2015 Unkn own Comp Metabolic Prv258 A/G Ratio 1.6 Ratio 04/27/2015 Unkn own Comp Metabolic Gid605 Osmo 270 mOsmo 04/27/2015 Unkn own Lipid Ord30 CHOL 176 mg/dL 04/27/2015 Unknown Lipid Ord30 HDL 51.0 mg/dl 04/27/2015 Unknown Lipid Ord30 TRIG 90 mg/dL 04/27/2015 Unknown Lipid Ord30 LDL 107 mg/dL 04/27/2015 Unknown Lipid Ord30 C/HDL 3.5 Ratio 04/27/2015 Unknown CBC 3458680 WBC 7.8 10e9/L 03/04/2014 Unknown CBC 3389728 RBC 4.79 10e12/L 03/04/2014 Unknow n CBC 3463371 HGB 12.9 g/dL 03/04/2014 Unknown CBC 8771923 HCT DET 40.3 % 03/04/2014 Unknown CBC 0417380 MCV 84.1 fL 03/04/2014 Unknown CBC 6592994 MCH 26.9 pg 03/04/2014 Unknown CBC 7091533 MCHC 32.0 g/dL 03/04/2014 Unknown CBC 7610072 PLT 236 10e9/L 03/04/2014 Unknown CBC 3702164 MPV 12.2 fL 03/04/2014 Unknown CBC 6998477 WILMAR % 64.4 % 03/04/2014 Unknown CBC 9006383 LY % 29.2 % 03/04/2014 Unknown CBC 0295309 MON % 5.4 % 03/04/2014 Unknown CBC 3420711 EOS % 0.6 % 03/04/2014 Unknown CBC 6106985 BASO % 0.4 % 03/04/2014 Unknown CBC 4946215 RDW 13.8 % 03/04/2014 Unknown CBC 8334492 ABS WILMAR 5.02 10e9/L 03/04/2014 Unknown CBC 9729071 ABS LYMPH 2.28 10e9/L 03/04/2014 Unknown CBC 7336604 ABS MONO 0.42 10e9/L 03/04/2014 Unknown CBC 3405808 ABS EOS 0.05 10e9/L 03/04/2014 Unknown CBC 3467205 ABS BASO 0.03 10e9/L 03/04/2014 Unknown CBC 7446998 RDW-SD 41.5 fL 03/04/2014 Unknown TSH 7946593 TSH 1.740 uIU/ML 03/04/2014 Unknow n LIPID GRP HDL TEST 48 MG/DL 03/04/2014 Unknown LIPID GRP TRIG 103 MG/DL 03/04/2014 Unknown LIPID GRP 6848810 TEST LDL 120 MG/DL 03/04/2014 Unknown LIPID GRP CHOL 189 MG/DL 03/04/2014 Unknown LIPID GRP RCHOL/HDL 3.94 RATIO 03/04/2014 Unknown LIPID GRP 8525505 NON-HDL CH 141 MG/DL 03/04/2014 Unknown FREE T4 8616656 FREE T4 0.92 NG/DL 03/04/2014 Unknown CHEM 14 7742996 AST 16 U/L 03/04/2014 Unknown CHEM 14 7883326 ALT 18 IU/L 03/04/2014 Unknown CHEM 14 6163102 BUN 13 MG/DL 03/04/2014 Unknown CHEM 14 1048507 ALBUMIN 4.4 GM/DL 03/04/2014 Unknown CHEM 14 5277550 CHLORIDE 109 MMOL/L 03/04/2014 Unknown CHEM 14 5632305 BILI TOT 0.5 MG/DL 03/04/2014 Unknown CHEM 14 6357491 ALK PHOS 70 U/L 03/04/2014 Unknown CHEM 14 0935165 SODIUM 139 MMOL/L 03/04/2014 Unknown CHEM 14 4712574 CREATININE 0.65 MG/DL 03/04/2014 Unknown CHEM 14 8249299 CALCIUM 9.3 MG/DL 03/04/2014 Unknown CHEM 14 8845789 POTASSIUM 3.7 MMOL/L 03/04/2014 Unknown CHEM 14 2202595 PROT TOT 7.1 GM/DL 03/04/2014 Unknown CHEM 14 2642909 GLUCOSE 88 MG/DL 03/04/2014 Unknown CHEM 14 7285494 BICARB 25 MMOL/L 03/04/2014 Unknown CHEM 14 2591556 ANION GAP 5 MEQ/L 03/04/2014 Unknown GFR CALC 1158997 GFR AA >60 ML/MIN 03/04/2014 Unknown GFR CALC 4250881 GFR NON-AA >60 ML/MIN 03/04/2014 Unknown Procedures Procedure Codes Date TRIAMCINOLONE ACET INJ NOS 10 mg CPT-4: J3301 016 ROCEPHIN, PER 250 MG CPT-4: J0696 02/29/2016 DESTRUCT PREMALG LESION CPT-4: 93599 05/25/2015 TRIAMCINOLONE ACET INJ NOS 10 mg CPT-4: J3301 015 ROCEPHIN, PER 250 MG CPT-4: J0696 05/10/2015 IMMUNIZATION ADMIN CPT-4: 62014 04/25/2015 IIV4 FLU VACC NO PRESERV ID Formatting Model/CDA Sections, Assigned to/Tracee Escobar SNNALLELY CT: [id number] CPT-4: 73268Ujnierg 04/25/2015 Vital Signs Date Vital 01/11/2020 Blood Pressure 1: 126/84 Code: 8480-6 BMI: 42.8 Code: 80405-3 Heart Rate 1: 105 bpm Height: 5'2" Code: 8302-2 SpO2: 96% Temperature: 3 7.0 (C) / 98.6 (F) Weight: 230 lbs Code: 09487-9 01/12/2019 Blood Pressure 1: 136/84 Code: 8480-6 Heart Rate 1: 74 bpm Height: Code: 8302-2 SpO2: 98% Weight: Code: 06727-5 08/01/2018 Blood Pressure 1: 134/76 Code: 8480-6 BMI: 45.5 Code: 31554-1 Heart Rate 1: 68 bpm Height: 5'2" Code: 8302-2 SpO2: 98% Weight: 245 lb s Code: 21389-6 02/07/2017 Blood Pressure 1: 136/84 Code: 8480-6 Heart Rate 1: 78 bpm Height: Code: 8302-2 SpO2: 97% Weight: Code: 22865-6 01/24/2017 Blood Pressure 1: 152/92 Code: 8480-6 BMI: 41.8 Code: 18277-6 Heart Rate 1: 87 bpm Height: 5'2" Code: 8302-2 SpO2: 97% Weight: 225 lb s Code: 02342-5 02/29/2016 Blood Pressure 1: 120/82 Code: 8480-6 BMI: 39.8 Code: 58945-9 Heart Rate 1: 116 bpm Height: 5'2" Code: 8302-2 SpO2: 96% Temperature: 3 9.4 (C) / 103.0 (F) Weight: 214 lbs Code: 02293-0 05/25/2015 Blood Pressure 1: 118/70 Code: 8480-6 BMI: 43.2 Code: 48182-5 Heart Rate 1: 85 bpm Height: 5'2" Code: 8302-2 SpO2: 96% Weight: 232 lb s 8 oz Code: 21411-7 05/10/2015 Blood Pressure 1: 130/84 Code: 8480-6 BMI: 44.6 Code: 37475-5 Heart Rate 1: 86 bpm Height: 5'2" Code: 8302-2 SpO2: 98% Weight: 240 lb s Code: 27015-6 04/25/2015 Blood Pressure 1: 140/98 Code: 8480-6 BMI: 44.6 Code: 07357-0 Height: 5'2" Code: 8302-2 Temperature: 37.0 (C) / 98.6 (F) Weight: 240 lbs Code : 29541-1 03/03/2014 Blood Pressure 1: 136/90 Code: 8480-6 BMI: 41.3 Code: 19844-8 Heart Rate 1: 82 bpm Height: 5'2" Code: 8302-2 SpO2: 98% Weight: 222 lb s Code: 06762-3 05/26/2013 Blood Pressure 1: 128/82 Code: 8480-6 BMI: 41.3 Code: 36868-4 Heart Rate 1: 80 bpm Height: 5'2" Code: 8302-2 Weight: 222 lbs Code: 79082 -7 04/09/2012 Blood Pressure 1: 126/80 Code: 8480-6 Heart Rate 1: 92 bpm Weight: 222 lbs Code: 07447-0 Functional Status No Functional Status data Reason For Visit Reason For Visit Effective Dates Notes hyperthyroidism 01/11/2020 eye pain 01/12/2019 knee pain 08/01/2018 weight gain/obesity 05/16/2017 hypertension 02/07/2017 hypertension 01/24/2017 chest congestion 02/29/2016 skin lesion 05/25/2015 cough 05/10/2015 skin lesion 04/25/2015 hypothyroid 03/03/2014 hypothyroid 05/26/2013 medication follow up 04/09/2012 Encounters Encounter Performer Location Codes Date 59309 EST. PATIENT, LEVEL III Diagnosis: Graves disease[ICD10: E05.00] Diagnosis: Thyroid nodule[ICD10: E04.1] Ginette Peter MD CPT- 4: 04817 01/11/2020 05776 EST. PATIENT, LEVEL IV Diagnosis: Other elevated white blood cell count[ICD10: D72.828] Diagnosis: Unspecified iridocyclitis[ICD10: H20.9] Brisa Jj MD, [facility] CPT-4: 06264 01/12/2019 59949 EST. PATIENT, LEVEL III Diagnosis: Pain in left knee[ICD10: M25.562] Brisa pollack MD, [facility] CPT-4: 50766 08/01/2018 07120 EST. PATIENT, LEVEL III Diagnosis: Other obesity due to excess calories[ICD10: E66.09] Diagnosis: Other skin changes[ICD10: R23.8] Brisa Marr [facility] CPT-4: 39995 05/16/2017 39523 EST. PATIENT, LEVEL IV Diagnosis: Essential (primary) hypertension[ICD10: I10] Brisa Jj MD, [facility] CPT-4: 86100 02/07/2017 71765 EST. PATIENT, LEVEL IV Diagnosis: Essential (primary) hypertension[ICD10: I10] Diagnosis: Palpitations[ICD10: R00.2] Brisa Jj MD, [facility] CPT-4: 29536 01/24/2017 35152 EST. PATIENT, LEVEL III Diagnosis: Acute laryngopharyngitis[ICD10: J06.0] Diagnosis: Other acute sinusitis[ICD10: J01.80] Brisa Jj MD, [facility] CPT-4: 40252 02/29/2016 ([id number]) 17121 EST. PATIENT, LEVEL II Diagnosis: Actinic keratosis[ICD10: L57.0] Alessia mcwilliams MD, [facility] CPT-4: 94834 05/25/2015 ([id number]) 02941 EST. PATIENT, LEVEL III Diagnosis: Acute upper respiratory infection, unspecified[ICD10: J06.9] Taylor Jj MD, [facility] CPT-4: 11094 05/10/2015 ([id number]) 85977 EST. PATIENT, LEVEL IV Diagnosis: Essential (primary) hypertension[ICD10: I10] Diagnosis: Generalized anxiety disorder[ICD10: F41.1] Diagnosis: Body mass index (BMI) 40.0-44.9, adult[ICD10: Z68.41] Diagnosis: Abnormal results of thyroid function studies[ICD10: R94.6] Diagnosis: Rash and other nonspecific skin eruption[ICD10: R21] Taylor Jj MD, [facility] CPT-4: 79915 04/25/2015 ([id number]) 94511 EST. PATIENT, LEVEL IV Diagnosis: Graves disease[ICD9: 242.00] Diagnosis: ANXIETY STATE[ICD9: 300.00] Diagnosis: Obesity[ICD9: 278.00] Alessia Jj MD, [facility] CPT- 4: 42132 03/03/2014 ([id number]) 18107 EST. PATIENT, LEVEL IV Diagnosis: Snoring disorder[ICD9: 786.09] Diagnosis: ANXIETY STATE[ICD9: 300.00] Alessia Jj MD, [facility] CPT-4: 68440 05/26/2013 ([id number]) 80716 EST. PATIENT, LEVEL IV Diagnosis: Anxiety[ICD9: 300.00] Diagnosis: Obesity[ICD9: 278.00] Diagnosis: Fatigue[ICD9: 780.79] Diagnosis: Graves disease[ICD9: 242.00] Alessia Jj MD, [facility] CPT-4: 86609 04/09/2012 Plan of Care Planned Activity Notes Codes Status Date Visit Plan: Graves disease, thyroid nodu le, tachycardia - will send RX - pt is to keep appointment with her endocrinology - will call for labs - pt is to notify clinic if symptoms do not improve, if they worsen, or with any changes, questions, or concerns. 01/11/2020 Appointment: Brisa Araiza WPtel: [address] [place], [place] [phone] (30 min) Complex 01/11/2020 Patient Education: Patient Medication Summary Completed 01/11/2020 Visit Plan: Uveitis, elevated white coun t - recurrent - await peripheral smear - will refer for workup - pt is to notify clinic with any changes, questions, or concerns. 01/12/2019 Appointment: Brisa Araiza WPtel: [address] [place], [place] [address] [place] (30 min) Complex 01/12/2019 Patient Education: Patient Medication Summary Completed 01/12/2019 Visit Plan: Left knee pain - the patient was instructed in appropriate posture. The pt is to use prn antiinflammatories to manage acute pain. The patient is to call the office if the pain is worsening or does not improve. 08/01/2018 [facility]ment[facility] [phone] [facility] [place] ([facility] min) Complex 08/01/2018 Patient Education: Patient Medication Summary Completed 08/01/2018 Referral: Ernie Wyman Appointment with Dr. Wyman on 05/20 at 4PM Completed 05/20/2017 Care Plan: Referral Order SNOMED-CT : 30 [id number] Pending 05/20/2017 Visit Plan: Obesity - chronic issue with this patient. The pt has been counseled about diet changes, calorie restriction, and need to exercise. Pt will RTC in one month for weight check. Changing skin lesion to right delgadillo - will refer for removal - pt is to notify clinic with any acute changes, questions, or concerns. 05/16/2017 Appointment: [facility] [phone] [facility] [place] ([facility] min) Complex 05/16/2017 Patient Education: Patient Medication Summary Completed 05/16/2017 Patient Education: Obesity Completed 1 07/16/2016 Visit Plan: Hypertension - well controll ed - continue with current medications, continue with no added salt diet. Pt has been encouraged to exercise daily. The pt has been advised to call the office if there are any acute concerns about change in blood pressure readings at home. 02/07/2017 Appointment: [facility] [phone] [facility] [place] (30 min) Complex 02/07/2017 Patient Education: Patient Medication Summary Completed 02/07/2017 Visit Plan: Palpitations - longterm valerie roid taper - will have pt split up the 60mg to take it throughout the day - pt is to notify clinic if symptoms do not improve, if they change, or with any questions or concerns. Hypertension - uncontrolled - the patient's medications have been modified as documented in the visit note. The patient has been counseled to cut back on salt in diet for a no added salt diet, low fat diet, start an exercise program with low weight bearing exercises and higher aerobic activity for heart health. The patient is to check blood pressure readings as an outpatient and either fax, call, or email the readings to the office next week for practitioner to review. The pt is to call for acute concerns. 01/24/2017 Appointment: Brisa Araiza WPtel: [phone] [id number] [place] (30 min) Complex 01/24/2017 Patient Education: Patient Medication Summary Completed 01/24/2017 Patient Education: Obesity Completed 0 01/24/2017 Visit Plan: URI - Pt advised to increase fluids, vitamin C. Discussed natural and expected course of this diagnosis and need to alert me if symptoms do not follow expected course, or if any worse. RX sent to patient's pharmacy. Sinusitis - Pt has acute infection - pain in face, maxillary region, Pt informed to use decongestant, RX given to patient, sinus rinses also recommended. Call if symptoms do not show improvement. 02/29/2016 Appointment: Taylor Jernigan WPtel: [phone] [phone] [place] (15 min) Moderate 02/29/2016 Patient Education: Patient Medication Summary Completed 02/29/2016 Patient Education: Obesity Completed 0 02/29/2016 Visit Plan: cryotherapy of the lesion on face near right nasolabial fold 05/25/2015 Appointment: Alessia Jj WPtel: [phone] [phone] [place] (15 min) Moderate 05/25/2015 Patient Education: Patient Medication Summary Completed 05/25/2015 Visit Plan: URI - Pt advised to increase fluids, vitamin C. Discussed natural and expected course of this diagnosis and need to alert me if symptoms do not follow expected course, or if any worse. RX sent to patient's pharmacy. Rocephin and kenalog injections today in the office Irritated lesion-right cheek- cryotherapy today in the office 05/10/2015 Appointment: (15 min) Moderate 5 Patient Education: Patient Medication Summary Completed 05/10/2015 Appointment: (15 min) Moderate 5 Visit Plan: Hypertension - uncontrolled - The patient has been counseled to cut back on salt in diet for a no added salt diet, low fat diet, start an exercise program with low weight bearing exercises and higher aerobic activity for heart health. The patient is to check blood pressure readings as an outpatient and either fax, call, or email the readings to the office next week for practitioner to review. The pt is to call for acute concerns. Graves disease-check labs today Rash-use hydrocortisone cream as directed-recheck in 2 weeks Changing lesion- cryotherapy today in the office-f/u in 2 weeks Obesity - chronic issue with this patient. The pt has been counseled about diet changes, calorie restriction, and need to exercise. Pt will RTC in one month for weight check. 04/25/2015 Appointment: (15 min) Moderate 5 Patient Education: Patient Medication Summary Completed 04/25/2015 Patient Education: Hypertension Completed 04/25/2015 Visit Plan: Graves disease - monitor thy roid levels. Depression and anxiety - pt to start on lexapro- will monitor her symptoms of anxiety and depression on her new medication in a few weeks. 03/03/2014 [facility]ment[phone] [id number] Follow up 03/03/2014 Patient Education: Patient Medication Summary Completed 03/03/2014 Visit Plan: .Snoring - recommended pt to have evaluation by Dr. Dey for potential need for sleep study/cpap machine. Chronic anxiety - the pt has symptoms of chronic anxiety that have been fairly well controlled since the last office visit. The pt has expected periods of exacerbation with abatement of the symptoms with change in situational exposure. No change in current medications. 05/26/2013 Appointment: [facility] Jj [facility]el[phone] [facility] Follow up 05/26/2013 Patient Education: Patient Medication Summary Completed 05/26/2013 Visit Plan: Chronic anxiety - the pt has symptoms of chronic anxiety that have been fairly well controlled since the last office visit. The pt has expected periods of exacerbation with abatement of the symptoms with change in situational exposure. No change in current medications. Fatigue-history of grave's disease-not currently symptomatic-check thyroid labs Obesity - chronic issue with this patient. The pt has been counseled about diet changes, calorie restriction, and need to exercise. Pt will RTC in one month for weight check. 04/09/2012 Appointment[phone] [phone] Other 04/09/2012 Patient Education: Patient Medication Summary Completed 04/09/2012 Referral: Ernie Wyman Referral Completed Instructions Comment . Graves disease, thyroid nodule, tachyc ardia - will send RX - pt is to keep appointment with her endocrinology - will call for labs - pt is to notify clinic if symptoms do not improve, if they worsen, or with any changes, questions, or concerns. . Uveitis, elevated white count - recurr ent - await peripheral smear - will refer for workup - pt is to notify clinic with any changes, questions, or concerns. Appointment with Dr. Durbin on 08/07 at 12 :30 - get there at 12:15 . Left knee pain - the patient was instr ucted in appropriate posture. The pt is to use prn antiinflammatories to manage acute pain. The patient is to call the office if the pain is worsening or does not improve. appointment with Dr. Wyman on 07/20 at 4PM - if you need to change it you can call his office and they will reschedule it for you. . Obesity - chronic issue with this patient. The pt has been counseled about diet changes, calorie restriction, and need to exercise. Pt will RTC in one month for weight check. Changing skin lesion to right delgadillo - will refer for removal - pt is to notify clinic with any acute changes, questions, or concerns. . Hypertension - well controlled - juan nue with current medications, continue with no added salt diet. Pt has been encouraged to exercise daily. The pt has been advised to call the office if there are any acute concerns about change in blood pressure readings at home. . Palpitations - longterm steroid taper - will have pt split up the 60mg to take it throughout the day - pt is to notify clinic if symptoms do not improve, if they change, or with any questions or concerns. Hypertension - uncontrolled - the patient's medications have been modified as documented in the visit note. The patient has been counseled to cut back on salt in diet for a no added salt diet, low fat diet, start an exercise program with low weight bearing exercises and higher aerobic activity for heart health. The patient is to check blood pressure readings as an outpatient and either fax, call, or email the readings to the office next week for practitioner to review. The pt is to call for acute concerns. use probiotic (culturelle or Mozenda, or generic) while on the antibiotics . URI - Pt advised to increase fluids, v itamin C. Discussed natural and expected course of this diagnosis and need to alert me if symptoms do not follow expected course, or if any worse. RX sent to patient's pharmacy. Sinusitis - Pt has acute infection - pain in face, maxillary region, Pt informed to use decongestant, RX given to patient, sinus rinses also recommended. Call if symptoms do not show improvement. . cryotherapy of the lesion on face near right nasolabial fold START DOXYCYCLINE 100MG TWICE DAILY-TAKE UNTIL GONE FOLLOW UP WITH DR JJ 05/25 AT 1:00PM . URI - Pt advised to increase fluids, v itamin C. Discussed natural and expected course of this diagnosis and need to alert me if symptoms do not follow expected course, or if any worse. RX sent to patient's pharmacy. Rocephin and kenalog injections today in the office Irritated lesion-right cheek-cryotherapy today in the office Hydrocoortisone cream to rash 2-3 times daily Follow up in 2 weeks PATIENT IS TO CHECK BLOOD PRESSURE AND HEART RATE TWO TIMES DAILY AND BRING IN A RECORD OF THE READINGS INTO THE OFFICE IN TWO WEEKS. . Hypertension - uncontrolled - The patient has been counseled to cut back on salt in diet for a no added salt diet, low fat diet, start an exercise program with low weight bearing exercises and higher aerobic activity for heart health. The patient is to check blood pressure readings as an outpatient and either fax, call, or email the readings to the office next week for practitioner to review. The pt is to call for acute concerns. Graves disease-check labs today Rash-use hydrocortisone cream as directed-recheck in 2 weeks Changing lesion-cryotherapy today in the office-f/u in 2 weeks Obesity - chronic issue with this patient. The pt has been counseled about diet changes, calorie restriction, and need to exercise. Pt will RTC in one month for weight check. . Graves disease - monitor thyroid level s. Depression and anxiety - pt to start on lexapro- will monitor her symptoms of anxiety and depression on her new medication in a few weeks. . .Snoring - recommended pt to have eval uation by Dr. Dey for potential need for sleep study/cpap machine. Chronic anxiety - the pt has symptoms of chronic anxiety that have been fairly well controlled since the last office visit. The pt has expected periods of exacerbation with abatement of the symptoms with change in situational exposure. No change in current medications. . Chronic anxiety - the pt has symptoms of chronic anxiety that have been fairly well controlled since the last office visit. The pt has expected periods of exacerbation with abatement of the symptoms with change in situational exposure. No change in current medications. Fatigue-history of grave's disease-not currently symptomatic-check thyroid labs Obesity - chronic issue with this patient. The pt has been counseled about diet changes, calorie restriction, and need to exercise. Pt will RTC in one month for weight check. Medical Equipment No Medical Equipment data Health Concerns Section Health Concerns data not found Goals Section Goals data not found Interventions Section Interventions data not found Health Status Evaluations/Outcomes Section Health Status Evaluations/Outcomes data not found Advance Directives No Advance Directive data
[2021-03-02] MEDS ORDERED: ceFAZolin 2 GM IV Premixed 50 ML IV ONE (08:45)
[2021-03-02] MEDS ORDERED: LACTATED RINGERS 1,000 ML IV PRN (08:45)
--- NOTE | 2021-03-02 09:07 | Progress Note-Pre Operative ---
Pre-Operative Progress Note H&P Reviewed The H&P was reviewed, patient examined and no changes noted. Date Seen by Provider: Mar 02, 2021 Time Seen by Provider: 09:05 Date H&P Reviewed: Mar 02, 2021 Time H&P Reviewed: 09:00 Pre-Operative Diagnosis: Symptomatic left breast intraductal papilloma PAOLO ROLLINS APRN Mar 02, 2021 09:07
[2021-03-02] MEDS ORDERED: HYDR-3817 PO (09:09)
--- NOTE | 2021-03-02 09:09 | Discharge Inst-Surgical ---
D/C Lap Instructions-KIDO Reconcile Patient Problems Problems Reviewed?: Yes New, Converted, or Re-Newed RX: RX on Chart Follow Up Appt in 2 weeks Activity as tolerated No driving for 24 hours No driving while on pain medications Incentive Spirometry use every 2 hours while awake Regular Diet Symptoms to Report: Fever over 101 degree F, Nausea/Vomiting Infection Signs and Symptoms to report: Increased redness, Foul odor of wound, Increased drainage Bathing instructions: May shower Operative Area Clean/Dry; Keep incision clean/dry If any problems/questions: Contact your physician or go to Emergency Room PAOLO ROLLINS APRN Mar 02, 2021 09:09
[2021-03-02] MEDS ORDERED: ONDANSETRON 4 MG/2 ML (SDV) Z0FRAN IVP PRN ×2 (09:15→12:00)
[2021-03-02] MEDS ORDERED: ACETAMINOPHEN 325 MG TABLET PO PRN (09:15)
[2021-03-02] MEDS ORDERED: HYDROcodone/APAP 5 MG/325 MG (LORTAB) TAB PO ONE (09:15)
[2021-03-02] MEDS ORDERED: morphine INJ 10 MG/ML 1ML (SYR OR VIAL) IVP PRN (09:15)
[2021-03-02] MEDS ORDERED: LIDOCAINE/EPI 1%-1:200,000 (XYLOCAINE) 30 ML VIAL ONE (09:21)
[2021-03-02] MEDS ORDERED: fentaNYL INJ 100 MCG/2 ML AMP ONE (09:33)
[2021-03-02] MEDS ORDERED: proPOfol 200 MG/20 ML (DIPRIVAN) VIAL IV ONE (09:33)
[2021-03-02] MEDS ORDERED: MIDAZOLAM 2 MG/2 ML (VERSED) VIAL ONE (09:33)
[2021-03-02] MEDS ORDERED: LIDOCAINE PF 2% 5 ML (XYLOCAINE) VIAL ONE (09:33)
[2021-03-02] MEDS ORDERED: ONDANSETRON 4 MG/2 ML (SDV) Z0FRAN ONE (09:33)
--- NOTE | 2021-03-02 11:36 | Progress Note-Post Operative ---
Post-Operative Progess Note Surgeon (s)/Facilitator (s) Surgeon RICHARD DUDLEY MD Facilitator: carlos enrique franco DOOR CLOSER Pre-Operative Diagnosis Symptomatic left breast intraductal papilloma Post-Operative Diagnosis same Procedure & Operative Findings Date of Procedure 03/02/21 Procedure Performed/Findings left breast ductal quadrantectomy Anesthesia Type general LMA Estimated Blood Loss Estimated blood loss (mL): minimal Specimens/Packing Specimens Removed left breast ductal quadrant(11-2 o'clock) RICHARD DUDLEY MD Mar 02, 2021 11:36
[2021-03-02] MEDS ORDERED: morphine INJ 10 MG/ML 1ML (SYR OR VIAL) IVP ONE (12:00)
[2021-03-02] MEDS ORDERED: PROMETHAZINE INJ 25 MG/ML (PHENERGAN) AMP IVP ONE (12:00)
[2021-03-02] MEDS ORDERED: MEPERIDINE (DEMEROL) INJ 50 MG/ML IVP ONE (12:00)
[2021-03-02] MEDS ORDERED: HYDROmorphone 2 MG/ML VIAL (DILAUDID) IV ONE (12:00)
[2021-03-02] MEDS ORDERED: SEVOFLURANE (ULTANE) 15 ML INHAL SOLN ONE (12:19)
--- NOTE | 2021-03-02 17:37 | OPERATIVE REPORT ---
DATE OF SERVICE: 03/02/2021 ATTENDING PRIMARY CARE PHYSICIAN: Alessia Jj MD. PREOPERATIVE DIAGNOSIS: Symptomatic left breast intraductal papilloma. POSTOPERATIVE DIAGNOSIS: Symptomatic left breast intraductal papilloma. PROCEDURE PERFORMED: Left breast ductal quadrantectomy at approximately the 11 to 2 o'clock position. SURGEON: Richard Dudley MD. SENIOR COMMISSIONS ANALYST: Rodolfo Gastelum APRN. ANESTHESIA: General laryngeal mask airway and local. ESTIMATED BLOOD LOSS: Minimal. FINDINGS: Symptomatic left breast intraductal papilloma. DISPOSITION: The patient tolerated the procedure well. INDICATIONS FOR PROCEDURE: The patient is a 41-year-old female, who was initially referred over to us for a right breast lesion . She underwent a screening mammogram on 12/24/2019, which was a BI-RADS 0 and incomplete. She has large fibrocystic breast, which had been this way for many years. She then underwent a 3D mammogram on 01/04/2020, which again was a BI-RADS 0. She underwent ultrasound 01/04/2020, which was again a BI-RADS 0. An MRI of bilateral breasts was performed 01/21/2020, which showed architectural distortion within the middle depth of the right breast at the 5 o'clock position considered a BI-RADS category 4 and then she underwent an MRI-guided biopsy, which came back as a benign adenosis with a small intraductal papilloma and radial sclerosing lesion, negative for atypia or malignancy. She was referred to the office for left breast nipple discharge. She reports that the drainage has been clear brown to yellow color in the past two months. She also does report some mild breast tenderness. A 3D mammogram was performed, which did not show any lesions and then she underwent an ultrasound, which did show an 11 x 5 x 2 mm lesion consistent with an intraductal papilloma as well as mild ductal dilatation. Upon examination, she was found to have a responsible quadrant in the upper outer region of the left breast at approximately the 11 to 2 o'clock positions. No bloody drainage. She started menses at around age 13 and is currently having menstrual cycles. She has taken oral contraceptive pills for a total of 22 years. She has undergone two pregnancies with two live childbirths, the first at age 22 and did not breastfeed her children. She has had one previous breast biopsy on the right breast. She does not report any family history of breast cancer; however, her mother was diagnosed with ovarian cancer and a maternal aunt with rectal cancer diagnosed in her 50s. DESCRIPTION OF PROCEDURE: The patient was brought to the operating room and laid supine on the table. After adequate IV pain and sedative medications and general laryngeal mask airway intubation, the breast, chest and arm were prepped and draped in a standard surgical fashion. A 0.5% Marcaine with epinephrine was used to anesthetize the nipple areolar complex at approximately the 11 to 2 o'clock position. We then proceeded with a gentle palpation of the breast to identify the responsible quadrant, which was again identified at the 11 to 2 o'clock position. This area was probed with lacrimal probes. A crescent-shaped skin incision along the nipple areolar complex was made using a 15 blade. We then proceeded with meticulous dissection of the ductal system using the probe as a guide using a 15 blade. The ductal system including the probe was then clamped with an Allis clamp and then the entire ductal system was excised under direct visualization using a 15 blade as well as electrocautery until normal breast tissue was identified. This was sent to pathology. Good hemostasis was observed. The nipple areolar complex was then reconstructed using interrupted 4-0 Prolene sutures. The nipple areolar complex was then covered with a nonstick dressing followed by a gauze and tape. The patient tolerated the procedure well. We will start IV normal pain medication as well as a clear liquid diet. When she is tolerating clears, has good pain control with oral pain medications, and ambulating well, we will discharge her home. We will have her follow up in the office in approximately two weeks to remove the sutures and to discuss the pathology. Job ID: [id number] DocumentID: [id number] Dictated Date: 03/02/2021 11:49:50 Drawer Liner Date: 03/02/2021 17:36:35 Dictated By: RICHARD DUDLEY MD
== END 2021-03-02 13:35 ==
LOC: SDC 08:28
PROVIDERS: ATTEND Surgery
DX: D24.2 Benign neoplasm of left breast (principal); I10 Essential (primary) hypertension; J30.9 Allergic rhinitis, unspecified; E05.00 Thyrotoxicosis with diffuse goiter without thyrotoxic crisis or storm; E66.01 Morbid (severe) obesity due to excess calories; F17.210 Nicotine dependence, cigarettes, uncomplicated; Z68.41 Body mass index [BMI] 40.0-44.9, adult; Z79.890 Hormone replacement therapy; Z79.899 Other long term (current) drug therapy; Z85.850 Personal history of malignant neoplasm of thyroid; Z90.89 Acquired absence of other organs; Z82.3 Family history of stroke; Z80.41 Family history of malignant neoplasm of ovary
CPT/HCPCS: 84703; 87081; 88305

== ENCOUNTER → 2022-07-16 | Outpatient (CLI) | payer OTHER ==
[~2022-07-16] MED LIST changes: +HYDR-3817 PO
--- NOTE | 2022-07-16 12:23 | Diagnostic Imaging Report ---
INDICATION: Routine screening. COMPARISON: 02/02/2021 and 12/24/2019. TECHNIQUE: 2D and 3D bilateral screening mammography was performed with CAD. FINDINGS: Scattered fibroglandular densities are identified bilaterally. A biopsy clip in the medial right breast is again noted. A benign nodule in the upper outer left breast is stable. No new mass or malignant-appearing microcalcifications are seen. The axillae are unremarkable. IMPRESSION: No mammographic features suspicious for malignancy are identified. ACR BI-RADS Category 2: Benign findings. Result letter will be mailed to the patient. Note: At least 10% of breast cancer is not imaged by mammography. Dictated by: Dictated on workstation # [id number]
== END ==
LOC: RAD 08:03
PROVIDERS: ATTEND Obstetrics & Gynecology
DX: Z12.31 Encounter for screening mammogram for malignant neoplasm of breast (principal)
CPT/HCPCS: 77063; 77067